=== PATIENT | male | born 1990 | race Caucasian/White ===

== ENCOUNTER 2019-08-24 09:35 | Outpatient (CLI) | payer MEDICAID, SELFPAY ==
--- NOTE | ~2019-08-24 | XR_ITS ---
EXAMINATION: XR lumbar spine 2-3V DATE: 08/24/2019 10:04 INDICATION: Low back pain TECHNIQUE: Anteroposterior and lateral views of the lumbar spine, and cone-down lateral view of the l umbosacral junction were obtained. COMPARISON: None. FINDINGS: There is no fracture, dislocation, or subluxation. The vertebral body heights, alignment, a nd intervertebral disc spaces are normal. The paravertebral soft tissues are unremarkable. A moderate volume of colonic stool is present. The bowel gas pattern is normal. IMPRESSION: 1. No acute osseous abnormality. 2. Constipation. Reviewed, dictated and finalized at location A. [employer]
--- NOTE | ~2019-08-24 | XR_ITS ---
EXAMINATION: XR ribs BI 3V w CXR 2V INDICATION: Right-sided chest pain, tobacco use TECHNIQUE: PA and lateral views of the chest and 3 views of the bilateral ribs were obtained. COMPARISON: None. FINDINGS: The lungs are free of acute opacities. There is no pleural effusion or pneumothorax. The ca rdiomediastinal silhouette is normal. No displaced rib fracture is identified. There is mild mid thor acic dextrocurvature. Mild pectus excavatum deformity is also noted. IMPRESSION: 1. No acute cardiopulmonary abnormality or evidence of displaced rib fracture. Reviewed, dictated and finalized at location A. [employer]
== END 2019-08-24 09:36 | disposition home or self-care (01) ==
LOC: ANHIMG 09:51
PROVIDERS: PCP Family Medicine; Visit Provider Family Medicine
DX: M54.5 Low back pain (principal); F17.200 Nicotine dependence, unspecified, uncomplicated; Q67.6 Pectus excavatum; K59.00 Constipation, unspecified
CPT/HCPCS: 71045; 71111; 72100